=== PATIENT | female | born 1940 | race Two or more races ===

== ENCOUNTER 2021-03-03 11:31 | Inpatient (IN) | payer MEDICARE, OTHER ==
[~2021-03-03] VITALS: Ht 162.6 cm; Wt 54.4 kg
[~2021-03-03 11:31] MED LIST: CALC-952 PO; DIPH25TA62 PO
--- NOTE | 2021-03-03 11:31 | NUR ---
PT BIBRA 87 FROM HOME C/O L FACIAL DROOP AND WEAKNESS STARTED 1030H. PT IS AAOX2 WELSH SPEAKING ONLY, NOT IN RESPIRATORY DISTRESS, HOOKED TO BUSINESS CHANGE MANAGER, KEPT RESTED AND COMFORTABLE. WILL CONTINUE TO MONITOR.
--- NOTE | 2021-03-03 11:37 | NUR ---
AT BEDSIDE FOR EVAL.
--- NOTE | 2021-03-03 11:41 | NUR ---
CODE STROKE ACTIVATED.
[2021-03-03 11:52] LABS: BASOPHILS # (AUTO) 0.1 /CMM (0.0-0.2); BASOPHILS % (AUTO) 0.6 % (0.0-2.0); HEMATOCRIT 42 % (33-45); LYMPHOCYTES # (AUTO) 1.6 /CMM (0.8-4.8); LYMPHOCYTES % (AUTO) 15.4 % (20.0-44.0); MEAN CORPUSCULAR HGB CONC 33 g/dl (31.0-36.0); MEAN CORPUSCULAR VOLUME 90 fL (82-100); MONOCYTES # (AUTO) 0.7 /CMM (0.1-1.30); MONOCYTES % (AUTO) 6.6 % (2.0-12.0); NEUTROPHILS # (AUTO) 8.2 /CMM (1.8-8.9); NEUTROPHILS % (AUTO) 76.4 % (43.0-81.0); PLATELET COUNT (AUTO) 343 /CMM (150-450); RED BLOOD CELL COUNT(AUTO) 4.68 MIL/uL (4.0-5.2); WHITE BLOOD COUNT (AUTO) 10.7 K/uL (4.3-11.0)
[2021-03-03] MEDS ORDERED: IV NS 0.9% 250 ML IV ONE (11:52)
[2021-03-03 12:01] LABS: CALCIUM, SERUM 8.2 mg/dL (8.5-10.1); CARBON DIOXIDE 20 mmol/L (21-32); CHLORIDE 107 mmol/L (98-107); CREATININE 1.3 mg/dL (0.6-1.3); GLUCOSE 113 mg/dL (74-106); POTASSIUM 4.8 mmol/L (3.5-5.1); SODIUM SERUM 139 mmol/L (136-145); UREA NITROGEN, BLOOD 16 mg/dL (7-18)
--- NOTE | 2021-03-03 12:03 | NUR ---
PT IS BACK FROM THE CT SCAN.
--- NOTE | 2021-03-03 12:03 | NUR ---
NEUROLOGIST ON TELEMED TALKING TO PT TOGETHER WITH THE DAUGHTER IN LAW.
[2021-03-03 12:07] LABS: CHOLESTEROL 159 mg/dL (<200); HDL CHOLESTEROL 65 mg/dL (40-60); LDL 76 mg/dL (0-99); TRIGLYCERIDES 105 mg/dL (30-150)
--- NOTE | 2021-03-03 12:15 | NUR ---
NEUROLOY CONCULT COMPLETED.
--- NOTE | 2021-03-03 12:20 | NUR ---
PT FAILED SWALLOW EVAL.
--- NOTE | 2021-03-03 12:30 | NUR ---
COVID SWAB DONE AND SENT TO LAB
--- NOTE | 2021-03-03 12:33 | NUR ---
ER TALKING TO PT AND FAMILY
--- NOTE | 2021-03-03 12:36 | NUR ---
[facility] CALLED COMMUNITY RECREATION COORDINATOR PAGED.
[2021-03-03] MEDS ORDERED: ASPIRIN 300 MG/SUPP.RECT RC ONE ×2 (12:42→13:00)
[2021-03-03] MEDS ORDERED: ENOXAPARIN SODIUM 40 MG/0.4 ML DISP.SYRIN SQ SCH (13:00)
--- NOTE | 2021-03-03 13:16 | NUR ---
US AT BEDSIDE
--- NOTE | 2021-03-03 13:58 | NUR ---
REPORT GIVEN TO MAX LYON FOR NINI
[2021-03-03] MEDS ORDERED: CLOPIDOGREL BISULFATE 75 MG TABLET PO ONE (14:20)
--- NOTE | 2021-03-03 14:29 | NUR ---
RIKY FENG ([facility]) - [phone]
--- NOTE | 2021-03-03 14:55 | NUR ---
PT'S DAUGHTER IN LAW VERBALIZED THAT THE PATIENT IS HAVING A WORSENING SLURRED SPEECH AND FACIAL DROOP. UNABLE TO ASASESS FOR SPEECH SINCE PATIENT IS BOLIVIAN SPEAKING. FACIAL DROOP STILL PRESENT EARLIER Addendum: 03/03/21 at 1500 by AREN SHARON SMITH, NO MADE AWARE OF PT REPORTED INCEASE IN SLURRED SPEACH. NEED TO BE BROUGHT ON MRI PRIOR TO GOING UP
--- NOTE | 2021-03-03 15:04 | NUR ---
MRI CALLED. ON THE WAY TO TEXTILE TECHNICAL OFFICER PT
--- NOTE | 2021-03-03 15:23 | NUR ---
pt wheeled to ct on [facility] emt and rn at bedside.
--- NOTE | 2021-03-03 15:28 | NUR ---
drDR. FARIAS AT BEDSIDE TALKING TO PT'S FAMILY
[2021-03-03] MEDS ORDERED: BLOOD SUGAR DIAGNOSTIC 1 EACH STRIP IN SCH (17:30)
--- NOTE | 2021-03-03 18:39 | NUR ---
SHARON SMITH NP PAGED FOR MRI RESULT RELAY
--- NOTE | 2021-03-03 18:48 | NUR ---
Spoke to Ashley Singh NP and said that patient is okay to go up to ICU.
--- NOTE | 2021-03-03 20:25 | NUR ---
report given to mickey balderas for srinivas.
--- NOTE | 2021-03-03 20:34 | NUR ---
pt trabnsported to unit ongurney with emt and rn at bedside w. acls protocol. nad noted during transport.
[2021-03-03 20:52] VITALS: BP 135/70
[2021-03-03 21:30] VITALS: BP 135/70
[2021-03-03] MEDS: ATORVASTATIN 40 MG TABLET PO SCH (22:00)
[2021-03-03] MEDS: BLOOD SUGAR DIAGNOSTIC 1 EACH STRIP IN SCH (23:02)
[2021-03-04] VITALS: BP 139/66
[2021-03-04] MEDS: BLOOD SUGAR DIAGNOSTIC 1 EACH STRIP IN SCH ×4 (00:07→18:04)
[2021-03-04] MEDS: ENOXAPARIN SODIUM 30 MG/0.3 ML DISP.SYRIN SQ SCH ×2 (00:27→08:37)
--- NOTE | 2021-03-04 00:29 | NUR ---
RN notes Received patient via stretcher from ER with diagnosis of stroke and history of previous stroke. Noted with left facial droop. Alert and oriented x 3. Citizen Of [place] speaking, understand and speak very little belarusian. No complaint of pain or discomfort. Noted with elevated temp of 100.9. Called Dr. [place] and obtained order to give tylenol suppository and to administer lovenox. Noted and carried out. Failed swallow eval, NPO until speech therapist recommendation. Cooling measures provided. Skin assessment done. Noted with left eye swelling and bruising. Status post cataract surgery. Kept clean and dry. Will continue to monitor.
[2021-03-04] MEDS ORDERED: ACETAMINOPHEN 650 MG/SUPP.RECT RC PRN (00:30)
[2021-03-04 04:00] VITALS: BP 100/56
[2021-03-04 06:23] LABS: BASOPHILS % (AUTO) 0.3 % (0.0-2.0); EOSINOPHILS % (AUTO) 0.7 % (0.0-6.0); HEMATOCRIT 38 % (33-45); HEMOGLOBIN 12.7 g/dL (11.5-14.8); LYMPHOCYTES # (AUTO) 2.3 /CMM (0.8-4.8); LYMPHOCYTES % (AUTO) 20.1 % (20.0-44.0); MEAN CORPUSCULAR HGB CONC 33 g/dl (31.0-36.0); MEAN CORPUSCULAR VOLUME 90 fL (82-100); MONOCYTES % (AUTO) 8.7 % (2.0-12.0); NEUTROPHILS # (AUTO) 7.9 /CMM (1.8-8.9); NEUTROPHILS % (AUTO) 70.2 % (43.0-81.0); PLATELET COUNT (AUTO) 298 /CMM (150-450); RED BLOOD CELL COUNT(AUTO) 4.22 MIL/uL (4.0-5.2); WHITE BLOOD COUNT (AUTO) 11.3 K/uL (4.3-11.0)
[2021-03-04 06:32] LABS: ALBUMIN 3.8 g/dL (3.4-5.0); BILIRUBIN,TOTAL 0.7 mg/dL (0.2-1.0); CREATININE 1.2 mg/dL (0.6-1.3); MAGNESIUM 1.9 mg/dL (1.8-2.4); PHOSPHORUS 3.7 mg/dL (2.5-4.9); TOTAL PROTEIN, SERUM 6.8 g/dL (6.4-8.2)
[2021-03-04 06:39] LABS: THYROID STIMULATING HORMONE 0.955 uIU/mL (0.358-3.74)
--- NOTE | 2021-03-04 07:39 | NUR ---
RECEIVED PATIENT IN BED. NO ACUTE DISTRESS NOTED. PATIENT ALERT & ORIENTED X3, WITH EPISODES OF CONFUSION. PATIENT ON ROOM AIR, SATURATING WELL. REMINDED PATIENT MULTIPLE TIMES TO USE CALL LIGHT WHEN NEED TO GET UP FOR ANYTHING. BED ALARM ON. PATIENT ON ASSISTANT FINANCIAL ACCOUNTANT, NSR NOTED. PATIENT NPO STATUS ACKNOWLEDGED. PATIENT LW IV ACCESS INTACT, PATENT. PATIENT SAFETY MEASURES MAINTAINED. CALL LIGHT WITHIN REACH. WILL CONTINUE TO MONITOR.
[2021-03-04 08:00] VITALS: BP 152/62
[2021-03-04] MEDS: CLOPIDOGREL BISULFATE 75 MG TABLET PO SCH (08:48)
[2021-03-04] MEDS: ASPIRIN EC 81 MG TABLET.DR PO SCH (08:48)
[2021-03-04] MEDS: IV D5/ 0.9% NACL 1,000 ML IV PRN (15:13)
[2021-03-04 16:00] VITALS: BP 131/71
--- NOTE | 2021-03-04 18:28 | NUR ---
PATIENT IN BED. NO ACUTE DISTRESS NOTED. PATIENT ALERT & ORIENTED X3, WITH EPISODES OF CONFUSION. PATIENT ON ROOM AIR, SATURATING WELL. REMINDED PATIENT MULTIPLE TIMES TO USE CALL LIGHT WHEN NEED TO GET UP FOR ANYTHING. BED ALARM ON. PATIENT NPO STATUS ACKNOWLEDGED. PATIENT R FOREARM IV ACCESS INTACT, PATENT. PATIENT SAFETY MEASURES MAINTAINED. CALL LIGHT WITHIN REACH. WILL ENDORSE PLAN OF CARE TO ONCOMING SHIFT
--- NOTE | 2021-03-04 19:30 | NUR ---
MS RN OPENING NOTE RECEIVED PATIENT IN BED. A/OX3, ROMANIAN SPEAKING, ABLE TO MAKE BASIC NEEDS KNOWN. TOLERATING ROOM AIR. RESPIRATIONS ARE EVEN AND UNLABORED. NO S/S SOB NOTED. NO C/O PAIN AT THIS TIME. IN NO APPARENT DISTRESS. IV ACCESS IN RIGHT WRIST #22 PATENT AND SALINE LOCKED, AND LEFT WRIST #20 RUNNING D5NS@75ML/HR. INFORMED PATIENT ON USE OF CALL LIGHT, HOW TO USE PHONE AND NPO DIAGNOSIS. BED IS LOW AND LOCKED, HOB ELEVATED IN SEMI FOWLERS, SIDE RIALS UP X2, CALL LIGHT WITHIN REACH. BED ALARM ON. WILL CONTINUE TO MONITOR THROUGHOUT SHIFT.
[2021-03-04 20:00] VITALS: BP 142/56
[2021-03-04] MEDS: ATORVASTATIN 40 MG TABLET PO SCH (20:32)
--- NOTE | 2021-03-04 21:37 | NUR ---
MS RN NOTE NO PHOTOS TAKEN PER TAB JOE, D/T PATIENT HAS PHOTOS TAKEN WITHIN 24 HOURS. ASSESSED SKIN AND COMPARED WITH PHOTOS, NO CHANGES NOTED.
[2021-03-05] MEDS: BLOOD SUGAR DIAGNOSTIC 1 EACH STRIP IN SCH ×4 (00:13→17:53)
[2021-03-05 04:00] VITALS: BP 112/62
[2021-03-05 05:48] LABS: BASOPHILS % (AUTO) 0.3 % (0.0-2.0); EOSINOPHILS % (AUTO) 1.3 % (0.0-6.0); HEMATOCRIT 40 % (33-45); HEMOGLOBIN 13.4 g/dL (11.5-14.8); LYMPHOCYTES # (AUTO) 1.3 /CMM (0.8-4.8); LYMPHOCYTES % (AUTO) 14.9 % (20.0-44.0); MEAN CORPUSCULAR HGB CONC 34 g/dl (31.0-36.0); MEAN CORPUSCULAR VOLUME 89 fL (82-100); MONOCYTES # (AUTO) 0.8 /CMM (0.1-1.30); MONOCYTES % (AUTO) 8.8 % (2.0-12.0); NEUTROPHILS # (AUTO) 6.6 /CMM (1.8-8.9); NEUTROPHILS % (AUTO) 74.7 % (43.0-81.0); PLATELET COUNT (AUTO) 286 /CMM (150-450); RED BLOOD CELL COUNT(AUTO) 4.47 MIL/uL (4.0-5.2); WHITE BLOOD COUNT (AUTO) 8.9 K/uL (4.3-11.0)
[2021-03-05] MEDS: IV D5/ 0.9% NACL 1,000 ML IV PRN ×2 (05:49→22:18)
--- NOTE | 2021-03-05 06:13 | NUR ---
MS RN CLOSING NOTE PATIENT IN BED. A/OX3, CONFUSED AT TIMES. REMAINS TOLERATING ROOM AIR. NO RESP DISTRESS. NO PAIN. NO DISTRESS. IV ACCESS MAINTAINED IN RIGHT WRIST #22 PATENT AND SALINE LOCKED. BED REMAIN S LOW AND LOCKED, HOB ELEVATED IN SEMI FOWLERS, SIDE RIALS UP X2, CALL LIGHT WITHIN REACH. BED ALARM ON. WILL ENDORSE TO ONCOMING SHIFT.
[2021-03-05 06:17] LABS: CALCIUM, SERUM 8.4 mg/dL (8.5-10.1); MAGNESIUM 2.3 mg/dL (1.8-2.4); PHOSPHORUS 3.2 mg/dL (2.5-4.9); POTASSIUM 3.8 mmol/L (3.5-5.1)
--- NOTE | 2021-03-05 07:28 | NUR ---
RN OPENING NOTE PATIENT IS IN BED WITH HOB AT SEMI FOWLERS POSITION. PATIENT IS CURRENTLY ON ROOM AIR WITH NO SIGNS OF LABORED BREATHING. PATIENT IS AOX3 AND UKRAINIAN SPEAKING BUT IS ABLE TO MAKE NEEDS KNOWN. RWRIST IS PATENT AND INTACT. BED IS LOCKED IN THE LOWEST POSITION, 3 GUARD RAILS RAISED, CALL SULLIV[place] WITHIN REACH, AND ALL HOSPITAL SAFETY PRECAUTIONS ARE BEING FOLLOWED. WILL CONTINUE TO MONITOR THROUGHOUT SHIFT.
[2021-03-05 08:00] VITALS: BP 133/68
[2021-03-05] MEDS: ENOXAPARIN SODIUM 30 MG/0.3 ML DISP.SYRIN SQ SCH (08:21)
[2021-03-05] MEDS: ASPIRIN EC 81 MG TABLET.DR PO SCH ×2 (08:22→09:54)
[2021-03-05] MEDS: CLOPIDOGREL BISULFATE 75 MG TABLET PO SCH ×2 (08:22→09:54)
--- NOTE | 2021-03-05 09:30 | NUR ---
RN NOTE SPOKE WITH SPEECH THERAPIST POST SWALLOW EVAL. PATIENT PASSED SWALLOW EVAL AND IS CLEARED FROM NPO STATUS. WILL ADMINISTER AM PO MEDS.
--- NOTE | 2021-03-05 12:00 | NUR ---
RN NOTE PATIENT REFUSING INSULIN COVERAGE FOR BLOOD SUGAR OF 176. EDUCATED PATIENT ON ADHERENCE TO INSULIN AND POTENTIAL SIDE EFFECTS. STILL REFUSED MEDICATION.
--- NOTE | 2021-03-05 14:16 | NUR ---
Reconciliation Manager Consult: director water and waste services consult requested for stroke. Per chart, patient was brought in to the hospital on 03/03/2021 for stroke. Patient is an 80-year-old, female. SW met with the patient in her hospital room on the [facility] surgical unit. Patient was alert and oriented x3. When asked about reason for current hospitalization, patient stated I dont know what happened and why I came here. Patient appears well-groomed and calm. Patient is currently living at home with her at [id number] [place] [id number]; [phone]. SW discussed social support with the patient and patient stated that she has adequate support from her and son. SW asked the patient about any sources of income and the patient stated that she receives Social Security Income. Patient stated that she is independent with her ADLs. Patient stated she has no history of mental illness or substance use. Patient denies any current suicidal or homicidal ideations. SW administered the PHQ-9 assessment. Patient scored 0 on the PHQ-9. SW provided informational material on stroke, Empowerment After Stroke. Patient accepted the packet, and thanked SW for the resource. Discharge plans discussed with the patient, and patient stated she will return to her prior living arrangements and will be picked up her son Joaquin Garces [phone]. PLAN: Patient to return home when medically stable. No further SS interventions at this time, however SW will remain available as needed.
[2021-03-05 16:00] VITALS: BP 121/68
--- NOTE | 2021-03-05 18:46 | NUR ---
RN CLOSING NOTE PATIENT IS IN BED WITH HOB AT SEMI FOWLERS POSITION. PATIENT IS CURRENTLY ON ROOM AIR WITH NO SIGNS OF LABORED BREATHING. PATIENT IS AOX3 AND DUTCH SPEAKING BUT IS ABLE TO MAKE NEEDS KNOWN. LEFT ARM IS SWOLLEN AND ELEVATED. RWRIST #22 IS PATENT AND INTACT. BED IS LOCKED IN THE LOWEST POSITION, 3 GUARD RAILS RAISED, CALL SULLIVAN WITHIN REACH, AND ALL HOSPITAL SAFETY PRECAUTIONS ARE BEING FOLLOWED. ALL DUE MEDS GIVEN AND PATIENT REMAINED STABLE THROUGHOUT SHIFT. WILL ENDORSE TO TANBARK PEELER RN.
--- NOTE | 2021-03-05 19:20 | NUR ---
RN NOTES PATIENT IS IN BED WITH HOB AT SEMI FOWLERS POSITION. PATIENT IS CURRENTLY ON ROOM AIR WITH NO SIGNS OF LABORED BREATHING. PATIENT IS AOX3 AND ALGERIAN SPEAKING BUT IS ABLE TO MAKE NEEDS KNOWN. R WRIST #22 IS PATENT AND INTACT. BED IS LOCKED IN THE LOWEST POSITION, 3 GUARD RAILS RAISED, CALL LIGHT WITHIN REACH, AND ALL HOSPITAL SAFETY PRECAUTIONS ARE BEING FOLLOWED. WILL CONTINUE TO MONITOR.
[2021-03-05 20:00] VITALS: BP 141/61
[2021-03-05] MEDS: ATORVASTATIN 40 MG TABLET PO SCH (21:38)
[2021-03-06 00:14] VITALS: BP 141/61
[2021-03-06] MEDS: BLOOD SUGAR DIAGNOSTIC 1 EACH STRIP IN SCH ×3 (00:14→11:54)
[2021-03-06 06:32] LABS: BASOPHILS % (AUTO) 0.3 % (0.0-2.0); HEMATOCRIT 36 % (33-45); HEMOGLOBIN 12.4 g/dL (11.5-14.8); LYMPHOCYTES # (AUTO) 1.3 /CMM (0.8-4.8); LYMPHOCYTES % (AUTO) 16.8 % (20.0-44.0); MEAN CORPUSCULAR HGB CONC 34 g/dl (31.0-36.0); MEAN CORPUSCULAR VOLUME 89 fL (82-100); MONOCYTES # (AUTO) 0.5 /CMM (0.1-1.30); NEUTROPHILS # (AUTO) 5.7 /CMM (1.8-8.9); NEUTROPHILS % (AUTO) 73.9 % (43.0-81.0); PLATELET COUNT (AUTO) 269 /CMM (150-450); RED BLOOD CELL COUNT(AUTO) 4.07 MIL/uL (4.0-5.2); WHITE BLOOD COUNT (AUTO) 7.7 K/uL (4.3-11.0)
[2021-03-06 07:09] LABS: CALCIUM, SERUM 8.2 mg/dL (8.5-10.1); CREATININE 0.8 mg/dL (0.6-1.3); MAGNESIUM 2.1 mg/dL (1.8-2.4); PHOSPHORUS 2.6 mg/dL (2.5-4.9); POTASSIUM 3.5 mmol/L (3.5-5.1)
--- NOTE | 2021-03-06 07:10 | NUR ---
RN NOTES PATIENT IS IN BED WITH HOB AT SEMI FOWLERS POSITION. PATIENT IS CURRENTLY ON ROOM AIR WITH NO SIGNS OF LABORED BREATHING. PATIENT IS AOX3 AND [place] SPEAKING BUT IS ABLE TO MAKE NEEDS KNOWN. PT HAS BILATERAL SOFT WRIST RESTRAINT CIRCULATION CHECKED Q2H ALL NEEDS MET. ALL DUE MEDS ADMINISTERED AND TOLERATED WELL. BED IS LOCKED IN THE LOWEST POSITION, 3 GUARD RAILS RAISED, CALL LIGHT WITHIN REACH, AND ALL HOSPITAL SAFETY PRECAUTIONS ARE BEING FOLLOWED. WILL ENDORSE CARE TO DAY SHIFT NURSE.
--- NOTE | 2021-03-06 07:30 | NUR ---
RN OPENING NOTES RECEIVED PATIENT IN BED, AWAKE, A/OX4, ON ROOM AIR, SPO2 95%, NO SOB OR RESP DISTRESS NOTED, MED-SURG STATUS, ABLE TO AMBULATE, CURRENTLY DO NOT HAVE IV LINE, WILL INSERT AND CONNECT D5NS @ 75CC/HR ORDERED, SAFETY PRECAUTIONS IN PLACE, BED IS LOCKED, LOWEST POSITION, BED ALARM ON, CALL LIGHT IN REACH, WILL CONT TO MONITOR
[2021-03-06 08:00] VITALS: BP 143/79
--- NOTE | 2021-03-06 08:00 | NUR ---
INSERTED IV L AC G24, GOOD BLOOD RETURN CONNECTED TO FLUIDS, CONT TO MONITOR
[2021-03-06] MEDS: ENOXAPARIN SODIUM 30 MG/0.3 ML DISP.SYRIN SQ SCH (09:12)
[2021-03-06] MEDS: CLOPIDOGREL BISULFATE 75 MG TABLET PO SCH (09:12)
[2021-03-06] MEDS: ASPIRIN EC 81 MG TABLET.DR PO SCH (09:12)
[2021-03-06 15:09] LABS: BILIRUBIN,URINE NEGATIVE (NEGATIVE); COLOR,URINE YELLOW (YELLOW); LEUKOCYTE ESTERASE ,URINE SMALL (NEGATIVE); NITRITE, URINE NEGATIVE (NEGATIVE); PH,URINE 5.5 (5.0-8.0); PROTEIN,URINE NEGATIVE (NEGATIVE); UGLUCOSE NEGATIVE (NEGATIVE)
[2021-03-06 15:16] LABS: BACTERIA,URINE Moderate /HPF (None Seen); SQUAMOUS EPITHELIAL CELL,UR Moderate /HPF (None Seen); YEAST,URINE Few /HPF (None Seen)
[2021-03-06] MEDS ORDERED: ATOR40TA PO (15:59)
[2021-03-06] MEDS ORDERED: ASPI-1420 PO (15:59)
[2021-03-06] MEDS ORDERED: CLOP75TA15 PO (15:59)
[2021-03-06 16:00] VITALS: BP 142/66
--- NOTE | 2021-03-06 17:02 | NUR ---
discharge home with son Joaquin, via private car, discharge instruction provided, IV and ID band removed
== END 2021-03-06 17:13 | disposition home health service (06) | DRG 64 ==
LOC: ER 11:33 → TELE 13:44 → TELE1 20:15 → MEDSG1 03-04 08:24
PROVIDERS: ADMIT Registered Nurse; ATTEND Nurse Practitioner Acute Care
DX: I63.411 Cerebral infarction due to embolism of right middle cerebral artery (principal); N17.0 Acute kidney failure with tubular necrosis; G81.94 Hemiplegia, unspecified affecting left nondominant side; Z86.73 Personal history of transient ischemic attack (TIA), and cerebral infarction without residual deficits; Z20.822 Contact with and (suspected) exposure to COVID-19; I10 Essential (primary) hypertension; R13.10 Dysphagia, unspecified; R47.81 Slurred speech; R29.704 NIHSS score 4; R40.2362 Coma scale, best motor response, obeys commands, at arrival to emergency department; R40.2142 Coma scale, eyes open, spontaneous, at arrival to emergency department; R40.2252 Coma scale, best verbal response, oriented, at arrival to emergency department; I34.0 Nonrheumatic mitral (valve) insufficiency; D32.9 Benign neoplasm of meninges, unspecified; R29.810 Facial weakness
CPT/HCPCS: 36415; 70450-TC; 70496-TC; 70498-TC; 70551-TC; 71045-TC; 80048-TC; 80053-TC; 80061-TC; 81001; 82962-TC; 83735-TC; 84100-TC; 84443-TC; 84484-TC; 85025-TC; 85730-TC; 87081-TC; 87086-TC; 92507-TC; 92521; 92526; 92611-TC; 93307-TC; 93880-TC; 97112-TC; 97116-TC; 97530-TC; C9803; G0378; J1650; J7042; J7050